=== PATIENT | female | born 1970 | race Caucasian/White ===

== ENCOUNTER 2021-06-18 14:59 | Inpatient (IN) | payer MEDICAID, OTHER ==
[~2021-06-18] VITALS: Ht 165.1 cm; Wt 74.8 kg
[2021-06-18] MEDS ORDERED: KETOROLAC 15MG/ML VIAL IV ONE (17:00)
[2021-06-18] MEDS ORDERED: LEVOFLOXACIN 500MG PREMIX 100 ML IV SCH (17:45)
[2021-06-18 17:52] LABS: BASOPHILS % 1.2 % (0.0-2.0); HEMATOCRIT. 40.2 % (36.0-48.0); HEMOGLOBIN. 13.5 g/dL (12.0-16.0); LYMPHOCYTES % 26.6 % (20.0-50.0); MEAN CORPUSCULAR HEMOGLOBIN 31.3 pg (28.0-32.0); MEAN CORPUSCULAR VOLUME 93.4 fL (81.0-99.0); MONOCYTES % 6.7 % (2.0-8.0); NEUTROPHILS % 64.5 % (40.0-76.0); PLATELET 334 x1000/uL (130-400); RED CELL DISTRIBUTION WIDTH 12.8 % (11.6-14.6)
[2021-06-18 18:02] LABS: CHLORIDE 108 mEq/L (98-107)
[2021-06-18 18:07] LABS: C REACTIVE PROTEIN QUANT 4.1 mg/L (0.0-3.0)
[2021-06-18 18:13] LABS: B-HCG QUANTITATIVE 2 mIU/mL (<3)
[2021-06-18] MEDS ORDERED: SODIUM CHLORIDE 0.9% 1,000 ML IV ONE (19:00)
[2021-06-18 22:41] LABS: CLARITY URINE CLEAR (CLEAR); COLOR URINE YELLOW (YELLOW); KETONES URINE NEGATIVE (NEGATIVE); LEUKOCYTE ESTERASE URINE 1+ (NEGATIVE); NITRITE URINE POSITIVE (NEGATIVE); OCCULT BLOOD URINE NEGATIVE (NEGATIVE); PH URINE 5.5 (4.5-8.0); PROTEIN URINE NEGATIVE (NEGATIVE); SPECIFIC GRAVITY URINE 1.017 (1.005-1.030); UROBILINOGEN URINE 0.2 E.U./dL (0.2-1.0)
[2021-06-18] MEDS ORDERED: IOHEXOL-300 100 ML BOTTLE ONE (22:59)
[2021-06-19] VITALS: BP 96/60
[2021-06-19] MEDS ORDERED: DEXTROSE 50% WATER 50ML SYRINGE IV PRN (02:45)
[2021-06-19 04:00] VITALS: BP 113/76
[2021-06-19] MEDS: PIPERACILLIN/TAZOBACTAM 3.375 G in DEXTROSE 5% WATER 50 ML IV SCH ×3 (05:28→22:34)
[2021-06-19] MEDS: INSULIN LISPRO 100 UNITS/ML SUBCUT SCH ×2 (05:45→11:24)
[2021-06-19] MEDS: BLOOD SUGAR DIAGNOSTIC STRIP TEST SCH ×2 (05:45→11:23)
[2021-06-19 08:00] VITALS: BP 107/70
[2021-06-19] MEDS ORDERED: KETOROLAC 30MG/ML VIAL IV PRN (12:00)
[2021-06-19 12:18] VITALS: BP 105/68
[2021-06-19 16:00] VITALS: BP 121/73
[2021-06-19 20:00] VITALS: BP 97/61
[2021-06-19] MEDS: LORAZEPAM 0.5MG TABLET PO PRN (20:33)
[2021-06-19] MEDS ORDERED: TRAZODONE HCL 50MG TABLET PO SCH (21:00)
[2021-06-20] VITALS: BP 96/61
[2021-06-20] MEDS: PIPERACILLIN/TAZOBACTAM 3.375 G in DEXTROSE 5% WATER 50 ML IV SCH (05:02)
[2021-06-20] MEDS: LORAZEPAM 0.5MG TABLET PO PRN (05:02)
[2021-06-20 08:00] VITALS: BP 108/76
[2021-06-20 11:13] LABS: *BARBITURATES SCREEN URINE NEGATIVE (NEGATIVE); CANNABINOID URINE SCREEN NEGATIVE (NEGATIVE); OPIATES URINE SCREEN NEGATIVE (NEGATIVE); PHENCYCLIDINE URINE SCREEN NEGATIVE (NEGATIVE)
[2021-06-20 11:14] LABS: *BENZODIAZEPINES SCREEN URINE NEGATIVE (NEGATIVE); *COCAINE SCREEN URINE NEGATIVE (NEGATIVE); METHADONE URINE SCREEN NEGATIVE (NEGATIVE)
[2021-06-20 11:29] LABS: *AMPHETAMINES SCREEN URINE PRESUMTIVE POSITIVE (NEGATIVE)
[2021-06-20] MEDS ORDERED: AMOX-424 MT (11:52)
[2021-06-20 12:00] VITALS: BP 113/66
[2021-06-20 13:08] VITALS: BP 113/66
== END 2021-06-20 14:14 | disposition home or self-care (01) | DRG 115 ==
LOC: ER 14:59 → EDBEDREQ 16:42 → 6EST 21:25 → EDBEDREQTM 21:27 → EDBEDREQSVC 21:27 → EDBEDREQ 21:27 → ENRESERV 23:26
PROVIDERS: ADMIT Internal Medicine; ATTEND Internal Medicine
DX: H60.23 Malignant otitis externa, bilateral (principal); E11.649 Type 2 diabetes mellitus with hypoglycemia without coma; N39.0 Urinary tract infection, site not specified; F31.9 Bipolar disorder, unspecified; Z20.822 Contact with and (suspected) exposure to COVID-19
CPT/HCPCS: 36415; 70460; 70481; 80053; 80305; 81003; 82962; 83036; 84702; 85025; 85651; 86140; 87426; 99285; J1885; J1956; J2543; J7030; J7060; Q9967